=== PATIENT | male | born 1960 | race Caucasian/White ===

== ENCOUNTER 2018-01-27 05:09 | Inpatient (IN) | payer OTHER ==
[~2018-01-27] VITALS: Ht 175.3 cm; Wt 85.6 kg
[~2018-01-27 05:09] MED LIST: ASPI81TA23 PO; OMEG100046 PO
[2018-01-27] MEDS ORDERED: CHLORHEXIDINE GLUCONATE 2 % 1 PACK (2 CLOTHS) TOPICAL PRN (05:30)
[2018-01-27] MEDS ORDERED: METOPROLOL TARTRATE 25 MG TAB PO PRN (05:30)
[2018-01-27] MEDS ORDERED: SODIUM CHLORID 0.9% 500 ML IV PRN (05:30)
[2018-01-27] MEDS ORDERED: ceFAZolin 2 GM/DEX PREMIX 50 ML IV SCH (05:30)
[2018-01-27] MEDS ORDERED: POVIDONE IODINE 5% (ANTISEPSIS KIT) 4 APPLICATIONS EACH NARE PRN (05:30)
[2018-01-27] MEDS ORDERED: LACTATED RINGER'S 1000 ML IV PRN (05:30)
[2018-01-27] MEDS ORDERED: NIAC500T5 PO (05:52)
[2018-01-27] MEDS ORDERED: OMEGCAP PO (05:52)
[2018-01-27] MEDS ORDERED: POTA8CAP PO (05:52)
[2018-01-27] MEDS ORDERED: MULT1TAB46 PO (05:52)
[2018-01-27] MEDS ORDERED: MILK300C PO (05:52)
[2018-01-27] MEDS ORDERED: VITA250C3 CHEW (05:52)
[2018-01-27] MEDS ORDERED: GARL400T4 PO (05:52)
[2018-01-27] MEDS ORDERED: ACETAMINOPHEN 1000 MG/100 ML 100 ML IV ONE (06:50)
[2018-01-27] MEDS ORDERED: HYDROmorphone HCL PF 2 MG/ML VIAL ONE (06:50)
[2018-01-27] MEDS ORDERED: LIDOCAINE 1%/EPINEPHrine 1:100,000 SOLN 30 ML VIAL ONE (07:16)
[2018-01-27] MEDS ORDERED: ceFAZolin INJ 1,000 MG VIAL ONE (11:40)
[2018-01-27] MEDS ORDERED: LIDOCAINE HCL 1% PF 5 ML SYRINGE OTHER ONE (12:00)
[2018-01-27] MEDS ORDERED: VECURONIUM BROMIDE 20 MG VIAL IV ONE (12:00)
[2018-01-27] MEDS ORDERED: STERILE WATER FOR INJECTION 20 ML VIAL IV ONE (12:00)
[2018-01-27] MEDS ORDERED: ROCURONIUM INJ 50 MG/5 ML SYRINGE IV PUSH ONE (12:00)
[2018-01-27] MEDS ORDERED: NEOSTIGMINE 5 MG/5 ML SYRINGE IV PUSH ONE (12:00)
[2018-01-27] MEDS ORDERED: LACTATED RINGER'S 1000 ML INJ 2,000 ML IV ONE (12:00)
[2018-01-27] MEDS ORDERED: ONDANSETRON HCL 4 MG/2 ML VIAL IV PUSH ONE (12:00)
[2018-01-27] MEDS ORDERED: ePHEDrine/NS 25 MG/5 ML SYRINGE IV ONE (12:00)
[2018-01-27] MEDS ORDERED: GLYCOPYRROLATE 1 MG/5 ML SYRINGE IV PUSH ONE (12:00)
[2018-01-27] MEDS ORDERED: DEXAMETHASONE SOD PHOS 4 MG/ML VIAL IV ONE (12:00)
[2018-01-27] MEDS ORDERED: PROPOFOL 200 MG/20 ML AMP IV ONE (12:00)
[2018-01-27] MEDS ORDERED: PHENYLEPH/NS 1000 MCG/10 ML SYR IV ONE (12:00)
[2018-01-27] MEDS ORDERED: KETOROLAC TROMETHAMINE 30 MG/ML (IVP) VIAL IV PUSH PRN (12:45)
[2018-01-27] MEDS ORDERED: SODIUM CHLOR 0.9% 1000 ML INJ 1,000 ML IV ONE (13:00)
[2018-01-27] MEDS: SODIUM CHLOR 0.9% 1000 ML INJ 1,000 ML IV SCH ×2 (13:25→20:14)
[2018-01-27] MEDS ORDERED: MIDAZOLAM HCL 2 MG/2 ML VIAL ONE (13:35)
[2018-01-27] MEDS ORDERED: ONDANSETRON ODT 4 MG TAB PO PRN (13:45)
[2018-01-27] MEDS ORDERED: DO NOT ADM ANY ANTICOAGULANT DRUGS PRN (13:45)
--- NOTE | 2018-01-27 13:49 | MP ---
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 PROCEDURE PERFORMED: Robotic-assisted laparoscopic radical prostatectomy with bilateral pelvic lymph node dissection. SURGEON: Koffi Tristan MD [employer] SUPERVISOR: Dr. Malone. ANESTHESIA: General. COMPLICATIONS: None. PREOPERATIVE ANTIBIOTICS: Ancef 2 grams IV. DRAINS: 1. A 20-Luxembourger Lehman catheter. 2. A 16-Luxembourger DIETER drain. ESTIMATED BLOOD LOSS: Blood loss 300 mL FLUIDS: 2 liters crystalloids. SPECIMENS: Prostate, seminal vessels and bilateral lymph nodes for permanent. DISPOSITION: Stable to recovery. INDICATIONS FOR PROCEDURE: The patient is a 57-year-old male with a history of elevated PSA. The patient underwent transrectal ultrasound with prostate biopsy by my partner, Dr. Schneider and was found to have intermediate prostate cancer in 12 out of 12 cores. He underwent a metastatic workup which was negative. He was then referred for a robotic prostatectomy. A prostate MRI was performed, which showed fairly extensive disease with several PI-RADS 5 lesions in his prostate gland, as well as suggestion of seminal vesicle invasion and extraprostatic extension. Due to these findings, the patient did elect to proceed with removal of the prostate. After risks, benefits, and alternatives were explained, including the risks of erectile dysfunction, urinary incontinence, positive margins, ureteral injury, bladder injury as well as need for adjuvant therapy, the patient elected to proceed. Informed consent was obtained. DETAILS OF PROCEDURE: The patient was properly identified and brought back to the operating room and laid supine on the operating table. A proper timeout was performed. Under the direction of Anesthesiology, the patient was intubated induced under general anesthetic. Preoperative antibiotics in the form of Ancef 2 grams IV were given within 1 hour prior to the procedure. The patient was then placed in dorsal lithotomy position. All pressure points were padded. He was then prepped and draped in normal sterile surgical fashion. A 16-Luxembourger Lehman catheter was placed sterilely on the field. Clear yellow urine returned. At this time, a stab incision was made just superior and lateral to the umbilicus on the patient's right side. Veress needle was then passed into the abdominal cavity. Insufflation was achieved. The incision was extended to approximately 2 cm and then passed blindly a 12 mm camera port. This went straight in without any difficulties. The abdomen was then insufflated. The laparoscope was then placed through the camera port and the abdomen was inspected. There was no evidence of intra-abdominal injury including any bleeding. There was no evidence of any intraabdominal adhesions as well. At this time, the 5 remaining ports were then placed under direct visualization, including the 12 mm and 5 mm university administrative assistant ports on the patient's right-hand side as well as 8 mm robotic ports, 2 on the left hand side and 1 on the right hand side, all handbreadth apart from each other. At this time, the robot was then brought into position. We began by taking down the sigmoid colon on the patient's left side. At this point, the patient was then placed in steep Trendelenburg position. Both medial umbilical ligaments were identified. The bladder was taken down in a sterile fashion and entered the retropubic space. The patient had significant superficial vasculature that was cauterized with electrocautery. Once the bladder was then taken down, I then removed the periprostatic fat from the prostate and the endopelvic fascia on each side. The endopelvic fascia was then entered on the right side and carefully dissected the pelvic muscles off of the prostate, marching up towards the apex anterior portion of the prostate. The puboprostatic ligaments were then divided as well. The same dissection was done on the left side. Again, the endopelvic fascia was entered with sharp dissection. The pelvic musculature was carefully dissected off the prostate towards the anterior portion of the prostate. At this time, the left-sided puboprostatic was taken down. A 1 V-Loc was then used for the DVC stitch. Prior to passing the DVC stitch the superficial DVC was taken with electrocautery. At this point, I turned my attention to the bladder neck. The anterior bladder neck was dissected out down to where the Lehman catheter was visualized. The Lehman catheter was deflated and brought back into the prostatic urethra. Using the third arm, I then was able to grab the distal portion of the Lehman catheter and retracted up against the pubic symphysis for traction. There was no evidence of a median lobe. Both ureteral orifices were far away from the bladder dissection. The posterior portion of the bladder was then taken down, as well as anterior Denonvilliers until I came across the seminal vesicles on each side. The patient had very large seminal vesicles. These were carefully dissected out with a combination of blunt dissection and electrocautery. The vas was divided on each side as well. At this point, the seminal vessel was then retracted anteriorly, the pubic symphysis. The posterior plane was then developed, entered the posterior Denonvilliers fascia and developed the underside of the prostate, all the way towards the apex. This helped to identify the pedicles on each side. Due to the patient's nature of his disease, it was decided to do a wide dissection. Therefore, the robotic vessel sealer was then used to take down the pedicles on each side towards the anterior portion of the prostate. Once both pedicles were taken down, the rectum was carefully inspected. The rectum appeared to be intact. I then divided the DVC with electrocautery anteriorly, came down through the urethra with cold cut scissors. The catheter was retracted. The rectal urethra nasalis muscle was then divided as well. At this point, the prostate and some muscles were completely dissected out. This was placed in the right pericolic gutter for later removal. The rectum was checked. No obvious rectal injury was seen. It was then irrigated out completely. At this point, I did a pelvic lymph node dissection on each side. The iliac vein was identified in each side. Tissue was then dissected off of the iliac vein on the right side to the pubic symphysis. Hem-o-cachorro was then used to ligate the lymph node packet. I then stripped the tissue off of the obturator nerve in its entirety. This was then sent off the right pelvic lymph nodes. The same dissection was done on the left side. Both lymph node packets were sent off for permanent. The obturator nerve remained intact. At this point, the vesicourethral anastomosis was then performed. This was performed with a double armed 2-0 Stratafix in a running fashion. The catheter was seen directly in the bladder at the end, a 20-Luxembourger was placed. Catheter was irrigated successfully. Surgicel powder was then used for hemostatic purposes. A 10-Luxembourger DIETER drain was then placed through the third arm, secured with 3-0 nylon. The prostate and seminal vesicles were placed in an EndoCatch bag and extracted through the midline incision. The midline incision was closed with 3 separate 0 Vicryl. All remaining ports were removed under direct visualization. The remaining ports were closed with Monocryl. This concluded the procedure. The patient was extubated and sent to recovery in stable condition. He will be transferred to the floor for routine postoperative care. MD ALEXY Craft/TIM , 12:58 PM , 01:47 PM
[2018-01-27] MEDS: PANTOPRAZOLE SODIUM 40 MG VIAL IV PUSH SCH (14:00)
[2018-01-27] MEDS: ACETAMINOPHEN 1000 MG/100 ML 100 ML IV SCH ×2 (14:00→20:15)
[2018-01-27 15:18] LABS: AUTOMATED NEUTROPHIL # 21.5 TH/MM3 (1.8-7.7); BASOPHIL % 0.1 % (0.0-2.0); HEMATOCRIT 41.4 % (39.0-51.0); HEMOGLOBIN 14.8 GM/DL (13.0-17.0); LYMPH % 3.3 % (9.0-44.0); LYMPHOCYTE # 0.8 TH/MM3 (1.0-4.8); MEAN CELL VOLUME 92.8 FL (80.0-100.0); MEAN CORPUSCULAR HEMOGLOBIN 33.1 PG (27.0-34.0); MEAN CORPUSCULAR HGB CONC 35.7 % (32.0-36.0); MEAN PLATELET VOLUME 7.5 FL (7.0-11.0); MONO % 2.8 % (0.0-8.0); MONOCYTE # 0.6 TH/MM3 (0-0.9); NEUT % 93.8 % (16.0-70.0); PLATELET COUNT 265 TH/MM3 (150-450); RED BLOOD COUNT 4.46 MIL/MM3 (4.50-5.90); WHITE BLOOD COUNT 22.9 TH/MM3 (4.0-11.0)
[2018-01-27 15:26] LABS: CALCIUM 8.1 MG/DL (8.5-10.1); CREATININE 1.49 MG/DL (0.60-1.30)
[2018-01-27 16:00] VITALS: BP 148/88; PULSE 103; RESP 18; TEMP 98.4; O2SAT 96
[2018-01-27 20:00] VITALS: BP 131/84; PULSE 100; RESP 18; TEMP 98.4; O2SAT 94
[2018-01-27] MEDS: DOCUSATE SODIUM 100 MG CAP PO SCH (20:14)
[2018-01-28 00:01] VITALS: BP 140/75; PULSE 88; RESP 17; TEMP 98.5; O2SAT 94
[2018-01-28] MEDS: ACETAMINOPHEN 1000 MG/100 ML 100 ML IV SCH ×2 (02:34→08:00)
[2018-01-28] MEDS: SODIUM CHLOR 0.9% 1000 ML INJ 1,000 ML IV SCH ×2 (02:34→07:54)
[2018-01-28 04:00] VITALS: BP 128/70; PULSE 96; RESP 17; TEMP 98.6; O2SAT 96
[2018-01-28 04:43] LABS: HEMATOCRIT 34.9 % (39.0-51.0); HEMOGLOBIN 12.3 GM/DL (13.0-17.0); MEAN CELL VOLUME 92.1 FL (80.0-100.0); MEAN CORPUSCULAR HEMOGLOBIN 32.5 PG (27.0-34.0); MEAN CORPUSCULAR HGB CONC 35.3 % (32.0-36.0); MEAN PLATELET VOLUME 7.7 FL (7.0-11.0); PLATELET COUNT 262 TH/MM3 (150-450); RED BLOOD COUNT 3.79 MIL/MM3 (4.50-5.90); RED CELL DISTRIBUTION WIDTH 13.2 % (11.6-17.2); WHITE BLOOD COUNT 13.2 TH/MM3 (4.0-11.0)
[2018-01-28 05:03] LABS: BICARBONATE 22.7 MEQ/L (21.0-32.0); CALCIUM 8.1 MG/DL (8.5-10.1); CREATININE 1.04 MG/DL (0.60-1.30)
[2018-01-28] MEDS: DOCUSATE SODIUM 100 MG CAP PO SCH (07:51)
[2018-01-28 08:00] VITALS: BP 136/82; PULSE 87; RESP 16; TEMP 98.5; O2SAT 96
[2018-01-28] MEDS ORDERED: oxyCODONE/ACETAMINOPHEN 5 MG/325 MG TAB PO PRN ×2 (08:15)
[2018-01-28] MEDS ORDERED: NON-FORMULARY DRUG (Niacin 500 MG) PO SCH (09:00)
[2018-01-28] MEDS ORDERED: FISH OIL CHOLECALCIFEROL PO SCH (09:00)
[2018-01-28 11:53] VITALS: BP 123/60; PULSE 82; RESP 18; TEMP 98.5; O2SAT 96
[2018-01-28] MEDS: PANTOPRAZOLE SODIUM 40 MG VIAL IV PUSH SCH (12:35)
[2018-01-28] MEDS ORDERED: MIRA3350 PO (15:04)
[2018-01-28] MEDS ORDERED: CIPR-9 PO (15:04)
[2018-01-28] MEDS ORDERED: OXYC1TAB63 PO (15:04)
--- NOTE | 2018-01-28 15:05 | HHI.PR ---
Subjective Patient symptoms today Pt was seen at bedside today. s/p RPP yesterday. VS and labs are stable. pain controlled, he admits having more soreness at the abd then pain. Brady is in place, draining clear yellow urine. DIETER has small output. Tolerated regular diet well. no N/V, not ambulated yet. Using IS. + burping, no flatus or BM yet Objective Vital Signs Vital Signs Date Time Temp Pulse Resp B/P (MAP) Pulse Ox O2 Delivery O2 Flow Rate FiO2 01/28/18 11:53 98.5 82 18 123/60 (81) 96 01/28/18 08:00 98.5 87 16 136/82 (100) 96 01/28/18 04:00 98.6 96 17 128/70 (89) 96 01/28/18 00:01 98.5 88 17 140/75 (96) 94 01/27/18 20:00 98.4 100 18 131/84 (100) 94 01/27/18 16:00 98.4 103 18 148/88 (108) 96 01/27/18 16:00 98.1 92 12 139/80 (99) 95 Nasal Cannula 2 01/27/18 15:00 98.1 86 12 149/84 (105) 97 Nasal Cannula 2 01/27/18 14:45 84 12 155/83 (107) 95 Nasal Cannula 2 01/27/18 14:30 91 12 158/89 (112) 97 Nasal Cannula 2 Intake & Output 01/28/18 01/28/18 07:00 19:00 Intake Total 2703 ml 530 ml Output Total 980 ml 398 ml Balance 1723 ml 132 ml Intake Oral 480 ml IV Total 2223 ml 530 ml Output Urine Total 850 ml 350 ml Drainage Total 130 ml 48 ml Bladder Scan Volume Amount 29 ml 29 ml Result Diagram: 01/28/18 0400 01/28/18 0400 Objective Remarks NAD RRR Lungs luzmaria Abd soft slightly distended. incisions healing well. DIETER is in place 25cc output Brady is in place, urine yellow and clear Medications and IVs Current Medications Medications (Trade) Dose Ordered Sig/Graciela Route Start Time Stop Time Status Last Admin Lactated Ringer's 1,000 ml @ 30 mls/hr Q24H PRN IV 01/27/18 05:30 01/30/18 05:29 01/27/18 05:45 Sodium Chloride 500 ml @ 30 mls/hr [id number] PRN IV 01/27/18 05:30 01/30/18 05:29 (Lopressor) 25 mg [employer] PRN PO 01/27/18 05:30 01/30/18 05:29 (Betadine 5% Antisepsis Kit) 1 applic [employer] K[employer]GER PRN EACH NARE 01/27/18 05:30 01/30/18 05:29 01/27/18 06:03 (Chlorhexidine 2% Cloth) 3 pack [employer]GER PRN TOPICAL 01/27/18 05:30 01/30/18 05:29 01/27/18 05:30 Cefazolin Sodium/ Dextrose 50 ml @ 100 mls/hr [employer]GER IV 01/27/18 05:30 01/30/18 05:29 01/27/18 07:47 (Colace) 100 mg BID PO 01/27/18 21:00 01/28/18 07:51 (Protonix Inj) 40 mg Q24H IV PUSH 01/27/18 14:00 01/28/18 12:35 (Zofran Odt) 4 mg Q6HR PRN PO 01/27/18 13:45 01/27/18 17:20 (Toradol Inj) 15 mg Q6H PRN IV PUSH 01/27/18 12:45 02/01/18 12:44 Sodium Chloride 1,000 ml @ 83 mls/hr Q12H3M IV 01/27/18 13:00 01/28/18 07:54 (Percocet 5-325 Mg) 2 tab Q4H PRN PO 01/28/18 08:15 (Percocet 5-325 Mg) 1 tab Q4H PRN PO 01/28/18 08:15 Assessment and Plan Assessment and Plan 57y/o POD #1 s/p RRP - Recovering well Pain controlled VS and Labs are stable Continue regular diet Use IS when in bed Needs to ambulate. If no issues with ambulation d/c home on percocet prn, cipro and miralax He will need to be d/c with brady catheter DIETER to be removed now He will need to f/u as outpt in 7-10days with cystogram prior Discharge Planning pending Constantino Morocho Jan 28, 2018 15:05
--- NOTE | 2018-01-28 15:23 | HHI.DS ---
Discharge Summary Admission Date Jan 27, 2018 at 05:09 Admitting Diagnosis CBC/BMP: 01/28/18 0400 01/28/18 0400 Significant Findings Laboratory Tests Test 01/27/18 05:40 01/27/18 15:02 01/28/18 04:00 01/28/18 05:25 White Blood Count 22.9 TH/MM3 (4.0-11.0) 13.2 TH/MM3 (4.0-11.0) Red Blood Count 4.46 MIL/MM3 (4.50-5.90) 3.79 MIL/MM3 (4.50-5.90) Neutrophils (%) (Auto) 93.8 % (16.0-70.0) Lymphocytes (%) (Auto) 3.3 % (9.0-44.0) Neutrophils # (Auto) 21.5 TH/MM3 (1.8-7.7) Lymphocytes # (Auto) 0.8 TH/MM3 (1.0-4.8) Creatinine 1.49 MG/DL (0.60-1.30) Random Glucose 149 MG/DL (74-106) 116 MG/DL (74-106) Calcium Level 8.1 MG/DL (8.5-10.1) 8.1 MG/DL (8.5-10.1) Chloride Level 108 MEQ/L (98-107) 110 MEQ/L (98-107) Estimat Glomerular Filtration Rate 49 ML/MIN (>89) 74 ML/MIN (>89) Hemoglobin 12.3 GM/DL (13.0-17.0) Hematocrit 34.9 % (39.0-51.0) Hospital Course 57y.o M s/p RRP 01/27/18. Recovering well. VS and LAbs are stable. Tolerating diet well, no fever. no hematuria. Brady is in place draining clear urine Pt Condition on Discharge: Stable Discharge Disposition: Discharge Home Discharge Instructions DIET: Follow Instructions for: As Tolerated, No Restrictions Activities you can perform: See Additionl Instruction Additional Activity Instructio: no strenuous activities no lifting more then 10-15lb No bath but can shower No driving if takes pain meds with narcotics Additional Information Follow up with Dr Tristan in 7-10 days to remove brady cath, Cystogram prior to visit Constantino Morocho Jan 28, 2018 15:23
== END 2018-01-28 17:46 | disposition home or self-care (01) | DRG 708 ==
LOC: HSDI 05:09 → N06B 16:06
PROVIDERS: ADMIT Urology; ATTEND Urology
PROC: 07TC4ZZ Resection of Pelvis Lymphatic, Percutaneous Endoscopic Approach (ICD-10-PCS; 2018-01-27)
PROC: 0VT34ZZ Resection of Bilateral Seminal Vesicles, Percutaneous Endoscopic Approach (ICD-10-PCS; 2018-01-27)
PROC: 8E0W4CZ Robotic Assisted Procedure of Trunk Region, Percutaneous Endoscopic Approach (ICD-10-PCS; 2018-01-27)
PROC: 0VT04ZZ Resection of Prostate, Percutaneous Endoscopic Approach (ICD-10-PCS; principal; 2018-01-27 07:25)
DX: C61 Malignant neoplasm of prostate (principal)
CPT/HCPCS: 80048; 82570; 85025; 85027; 85610; 86850; 86900; 86901; 86920; 88307; 88309; 94150; C9113; J0131; J0690; J1100; J1170; J2250; J2370; J2405; J2710; J3010; J7030; J7120